=== PATIENT | female | born 1990 | race Caucasian/White ===

== ENCOUNTER 2017-03-27 12:22 | Day surgery (SDC) | payer OTHER ==
[2017-03-27] VITALS (15 sets, daily range): BP systolic 107–131; BP diastolic 53–77; PULSE 62–82; RESP 14–20; Ht 172.7 cm; Wt 79.0 kg
[~2017-03-27] VITALS: Ht 172.7 cm; Wt 79.0 kg
[~2017-03-27 12:22] MED LIST: CEFAZOLIN 2 GM/50 ML (PMX) 50 ML IVPB SCH; SOD CHLORIDE 0.9% 1,000 ML IV SCH
[2017-03-27] MEDS ORDERED: MIDAZOLAM 1 MG/ML 2 ML INJ ONE (14:06)
[2017-03-27] MEDS ORDERED: PROPOFOL 20 ML ONE (14:06)
[2017-03-27] MEDS ORDERED: ROPIVACAINE 0.2% 20 ML VIAL ONE (14:06)
[2017-03-27] MEDS ORDERED: ROCURONIUM 50 MG INJ ONE (14:06)
[2017-03-27] MEDS ORDERED: CEFAZOLIN 1 GM INJ ONE (14:10)
[2017-03-27] MEDS ORDERED: BUPIVACAINE 0.25% (MPF) 30 ML INJ ONE (14:18)
[2017-03-27] MEDS ORDERED: morphine (1 MG/ML) 10ML SYRINGE IV PRN ×2 (14:30)
[2017-03-27] MEDS ORDERED: DIPHENHYDRAMINE 50 MG INJ IV PRN (14:30)
[2017-03-27] MEDS ORDERED: EPHEDrine SULFATE 50 MG/5 ML SYG IV PRN (14:30)
[2017-03-27] MEDS ORDERED: MEPERIDINE 25 MG INJ IV PRN (14:30)
[2017-03-27] MEDS ORDERED: OXYCODONE/ACETAMINOPHEN (5/325) TAB PO PRN (14:30)
[2017-03-27] MEDS ORDERED: ONDANSETRON 4 MG INJ IV PRN (14:30)
[2017-03-27] MEDS ORDERED: HYDROmorphONE (0.2 MG/ML) 10ML SYG IV PRN ×2 (14:30)
[2017-03-27] MEDS ORDERED: PHENYLephrine (100 MCG/ML) 5ML SYG ONE (15:05)
[2017-03-27] MEDS ORDERED: NEOSTIGMINE 3 MG/3 ML SYRINGE ONE (15:09)
[2017-03-27] MEDS ORDERED: ONDANSETRON 4 MG INJ ONE (15:09)
[2017-03-27] MEDS ORDERED: KETOROLAC 30 MG INJ ONE (15:09)
[2017-03-27] MEDS ORDERED: GLYCOPYRROLATE 0.4 MG INJ ONE (15:09)
[2017-03-27] MEDS ORDERED: METOCLOPRAMIDE 10 MG INJ ONE (15:09)
[2017-03-27] MEDS ORDERED: DEXAMETHASONE 4 MG/ML 1 ML INJ ONE (15:09)
[2017-03-27] MEDS ORDERED: BUPIVACAINE 0.25% (MPF) 10 ML 10 ML VIAL ONE (15:10)
[2017-03-27] MEDS ORDERED: HYDROCODONE/APAP (5/325) TAB PO ONE (15:30)
[2017-03-27] MEDS: morphine (1 MG/ML) 10ML SYRINGE IV PRN ×2 (15:39→15:52)
[2017-03-27] MEDS: HYDROmorphONE (0.2 MG/ML) 10ML SYG IV PRN ×2 (15:40→15:53)
--- NOTE | 2017-03-27 15:45 | OPR ---
DATE OF OPERATION: 03/27/2017 INDICATION: This is a 26-year-old female with symptomatic gallstones. She requests surgical excisi on of her gallbladder. Risks, alternatives, benefits, and personnel were discussed with patient. P arcenio expressed understanding and consents to the operation. PREOPERATIVE DIAGNOSIS: Symptomatic gallstones. POSTOPERATIVE DIAGNOSIS: Symptomatic gallstones. OPERATION: Laparoscopic cholecystectomy. SURGEON: Arlene Lindsey MD SPECIMEN: Gallbladder. COMPLICATIONS: None. ANESTHESIA: General. PROCEDURE: The patient was taken to the OR and prepped and draped in the usual sterile fashion. Moreno rgical timeout was performed. IV antibiotics were given. Infraumbilical transverse incision is mad e with a 15 blade. Dissection cautery was carried down to the fascia which was divided with curved Patton scissors. An 0 Vicryl U-stitch was placed into the fascia. Balloon Shae trocar is introduce d. Pneumoperitoneum was established. Midepigastric 12 mm optical trocar and right upper quadrant a nd right upper flank 5 mm optical trocars are placed under direct visualization. Upon initial inspe ction, there were some adhesions to the gallbladder with evidence of cholecystitis. These were take n down bluntly. The cystic duct was identified. The critical view was established. The cystic norma t and cystic artery are divided using a 35 mm [place] stapler gallbladder. The gallbladder was take n off the gallbladder bed. The staple line was reinforced with clips. There was good hemostasis. Gallbladder was retrieved using EndoCatch bag. Ports were removed under direct visualization. The 0 Vicryl U-stitch was tied down. Skin was closed with skin everette. Local anesthesia was injected. Dry dressings were applied. Dictated By: ARLENE COHEN/TG Conf#: [id number] DID#: [id number]
== END 2017-03-27 17:35 | disposition home or self-care (01) ==
LOC: SDS 12:22
PROVIDERS: ATTEND Surgery
DX: K80.20 Calculus of gallbladder without cholecystitis without obstruction (principal)
CPT/HCPCS: 84703; 88304; J0690; J1100; J1170; J1885; J2250; J2270; J2370; J2405; J2710; J2765; J2795; J3010